=== PATIENT | female | born 1945 | race Caucasian/White ===

== ENCOUNTER 2020-03-09 08:59 | Outpatient (REF) | payer MEDICARE, SELFPAY ==
--- NOTE | 2020-03-09 | MM_ITS ---
EXAMINATION: BONE DENSITOMETRY CLINICAL INDICATION: Osteopenia. COMPARISON: Previous BD dated 03/29/2015 and baseline BD dated 03/08/2008. TECHNIQUE: Using a [employer] DXA System (software version: 13.1) manufactured by [employer], dual-energy x-ray absorptiometry was performed of the lumbar spine and left hip. The images are of good technical quality. Summary results are attached. FINDINGS: AP SPINE L1-L2 (excluding L3 and L4): The data of L1-L4 has been changed to exclude the L3 and L4 vertebral bodies, because degenerative changes at these levels may cause overestimation of lumbar spine density. Current: BMD 1.202 g/cm2, Z-score 1.9, T-score 0.3, normal, 2.6% increase from previous, 3.7% decrease from baseline (<5% change is not significant). Prior: BMD 1.172 g/cm2. Baseline: BMD 1.248 g/cm2. LEFT FEMUR, NECK: Current: BMD 0.915 g/cm2, Z-score 0.9, T-score -0.9, normal. Prior: BMD 0.913 g/cm2. Baseline: BMD 0.978 g/cm2. LEFT FEMUR, TOTAL: Current: BMD 1.070 g/cm2, Z-score 2.1, T-score 0.5, normal, 0.2% increase from previous, 7.6% decrease from baseline (<5% change is not significant). Prior: BMD 1.068 g/cm2. Baseline: BMD 1.158 g/cm2. IDENTIFIED RISK FACTORS: Height loss, menopause. HISTORY OF FRACTURE: None listed. MEDICATIONS: Vitamin D. MM/XR DEXA axial skeleton IMPRESSION: 1. DIAGNOSIS: Normal bone density based on the lowest T-score value of -0.9 in the femoral neck applying World Health Organization criteria. 2. 10-YEAR FRACTURE RISK PREDICTION, FRAX: Major osteoporotic fracture (clinical spine, forearm, hip or shoulder) 9.2%. Hip fracture 1.2%. 3. Treatment Recommendations: NOF guidelines recommend consideration for treatment in postmenopausal women and men age 50 and older presenting with the following: -A hip or vertebral (clinical or morphometric) fracture. -T-score less than or equal to -2.5 at the femoral neck or spine after appropriate evaluation to exclude secondary causes. -Low bone mass at the hip or spine and a 10-year fracture probability by FRAX of greater than or equal to 3% for hip fracture or greater than or equal to 20% for major osteoporotic fracture based on the [place] adapted WHO algorithm. 4. Other Recommendations: All treatment decisions require clinical judgment and consideration of individual patient factors, including patient preferences, comorbidities, previous drug use, risk factors not captured in the FRAX model (e.g. frailty, falls, vitamin D deficiency, increased bone turnover, interval significant decline in bone density) and possible under or overestimation of fracture risk by FRAX. FUTURE SCAN RECOMMENDATION: People with diagnosed cases of osteoporosis or at high risk for fracture should have regular bone mineral density tests. For patients eligible for Medicare, routine testing is allowed once every 2 years. The testing frequency can be increased to one year for patients who have rapidly progressing disease, those who are receiving or discontinuing medical therapy to restore bone mass, or have additional risk factors.
--- NOTE | 2020-03-09 | MM_ITS ---
EXAMINATION: MM SCREENING DIGITAL BREAST TOMOSYNTHESIS, BILATERAL CLINICAL INFORMATION: Screening. Asymptomatic. The lifetime risk of breast cancer based on the Tyrer-Cuzick Model is 5%. COMPARISON: Mammography: 03/04/2019, 02/26/2018, 02/04/2017 TECHNIQUE: Digital breast tomosynthesis is performed in both the craniocaudal and mediolateral oblique views along with computer-aided detection (CAD). Synthesized 2D images are generated from the tomosynthesis. Additional left CC view is provided. FINDINGS: There are scattered areas of fibroglandular density (ACR BI-RADS breast composition Category b). There are no significant masses, abnormal calcifications, or other abnormalities. The axilla and skin contours are unremarkable. MM/MM tomosynthesis screening BI IMPRESSION: No mammographic evidence of malignancy. ASSESSMENT: BI-RADS 1: Negative RECOMMENDATION: Routine annual mammography screening. This patient's information was entered into a reminder system with a target due date for their next mammogram.
== END 2020-03-09 09:00 | disposition home or self-care (01) ==
LOC: HO.MAMMO 08:59
PROVIDERS: Visit Provider Internal Medicine
DX: Z12.31 Encounter for screening mammogram for malignant neoplasm of breast (principal); Z13.820 Encounter for screening for osteoporosis; M85.89 Other specified disorders of bone density and structure, multiple sites
CPT/HCPCS: 77063; 77067; 77080; 77081

== ENCOUNTER 2020-05-29 13:42 | Outpatient (REF) | payer MEDICARE, SELFPAY ==
[2020-05-29 15:22] LABS: Anion Gap 14 (12-20); Blood Urea Nitrogen 17 mg/dL (9-16); Calcium 9.4 mg/dL (8.4-10.2); Carbon Dioxide 28 mmol/L (22-29); Chloride 103 mmol/L (96-108); Estimated Glomerular Filt Rate > 60; Glucose Random 76 mg/dL (60-115); Potassium 4.3 mmol/L (3.3-5.1); Sodium 141 mmol/L (135-145)
== END 2020-05-29 13:43 | disposition home or self-care (01) ==
LOC: HO.LAB 13:42
PROVIDERS: PCP Internal Medicine; Visit Provider Internal Medicine
DX: E87.6 Hypokalemia (principal)
CPT/HCPCS: 36415; 80048

== ENCOUNTER 2020-09-04 10:19 | Outpatient (REF) | payer MEDICARE, SELFPAY ==
[2020-09-04 10:40] LABS: Hemoglobin 13.1 g/dl (12.0-16.0); Red Cell Distribution Width 13.9 % (11.0-16.0)
[2020-09-04 10:42] LABS: Hematocrit 40.2 % (37-47); Mean Corpuscular HGB Conc 32.6 g/dl (31.0-35.0); Mean Corpuscular Volume 88.9 fL (80-98); Mean Platelet Volume 9.9 fL (9.4-12.3); Red Blood Count 4.52 X10*6/uL (4.20-5.50)
[2020-09-04 10:48] LABS: Platelet Count 135 X10*3/uL (160-400)
[2020-09-04 11:04] LABS: Alanine Aminotransferase 19 U/L (0-31); Albumin Level 4.3 g/dL (3.5-5.0); Alkaline Phosphatase 104 U/L (39-117); Anion Gap 13 (12-20); Aspartate Amino Transferase 26 U/L (5-31); Bilirubin Total 0.6 mg/dL (0.0-1.0); Blood Urea Nitrogen 15 mg/dL (9-16); Calcium 9.7 mg/dL (8.4-10.2); Carbon Dioxide 29 mmol/L (22-29); Chloride 106 mmol/L (96-108); Cholesterol 165 mg/dL; Estimated Glomerular Filt Rate > 60; Glucose Random 108 mg/dL (60-115); HDL Cholesterol 46 mg/dL; LDL Cholesterol Calculated 96 mg/dl; Sodium 144 mmol/L (135-145); Total Protein 7.2 g/dL (6.5-8.0); Triglycerides 117 mg/dL
[2020-09-04 11:25] LABS: TSH reflex Free T4 1.12 uIU/mL (0.32-4.0); Vitamin D 25-OH Total 48.6 ng/mL (>30)
[2020-09-04 13:11] LABS: Creatinine Urine 126.41 mg/dL; Microalbum/Creatinine Ratio Ur 52.2 ug/mg cr
== END 2020-09-04 10:20 | disposition home or self-care (01) ==
LOC: HO.LAB 10:19
PROVIDERS: PCP Internal Medicine; Visit Provider Internal Medicine
DX: Z00.00 Encounter for general adult medical examination without abnormal findings (principal); E78.2 Mixed hyperlipidemia; I10 Essential (primary) hypertension; R53.83 Other fatigue; E55.9 Vitamin D deficiency, unspecified
CPT/HCPCS: 36415; 80053; 80061; 82043; 82306; 84443; 85027

== ENCOUNTER 2021-01-21 12:43 | Outpatient (REF) | payer MEDICARE, SELFPAY ==
[2021-01-21 13:21] VITALS: BP 148/70; PULSE 82; RESP 16; TEMP 36.2; O2SAT 97; BMI 26.5
== END 2021-01-21 12:44 | disposition home or self-care (01) ==
LOC: HO.MS 12:43
PROVIDERS: PCP Internal Medicine; Visit Provider Ophthalmology
PROC: (CPT 66821; principal; 2021-01-21 14:30)
DX: H26.492 Other secondary cataract, left eye (principal); Z83.511 Family history of glaucoma; H35.033 Hypertensive retinopathy, bilateral; Z96.1 Presence of intraocular lens; I10 Essential (primary) hypertension; E78.00 Pure hypercholesterolemia, unspecified; Z79.899 Other long term (current) drug therapy
CPT/HCPCS: 66821

== ENCOUNTER 2021-05-17 09:05 | Outpatient (REF) | payer MEDICARE, SELFPAY ==
--- NOTE | ~2021-05-17 | MM_ITS ---
EXAMINATION: MM SCREENING DIGITAL BREAST TOMOSYNTHESIS, BILATERAL CLINICAL INFORMATION: Screening. Asymptomatic. The lifetime risk of breast cancer based on the Tyrer-Cuzick Model is 4%. COMPARISON: Mammography: 03/09/2020, 03/04/2019, 02/26/2018, 02/04/2017, 01/21/2016 TECHNIQUE: Digital breast tomosynthesis is performed in both the craniocaudal and mediolateral oblique views along with computer-aided detection (CAD). Synthesized 2D images are generated from the tomosynthesis. FINDINGS: There are scattered areas of fibroglandular density (ACR BI-RADS breast composition Category b). Parenchymal pattern is similar to prior studies. Small island fibroglandular tissue mid central 12:00 left breast is also noted on prior studies including 2016. There is no developing density. Scattered bilateral vascular and some scattered punctate round calcifications are again noted. The axilla and skin contours are unremarkable. MM/MM tomosynthesis screening BI IMPRESSION: No significant changes from prior exams. ASSESSMENT: BI-RADS 2: Benign RECOMMENDATION: Routine annual mammography screening. This patient's information was entered into a reminder system with a target due date for their next mammogram.
== END 2021-05-17 09:06 | disposition home or self-care (01) ==
LOC: HO.MAMMO 09:05
PROVIDERS: PCP Internal Medicine; Visit Provider Internal Medicine
DX: Z12.31 Encounter for screening mammogram for malignant neoplasm of breast (principal)
CPT/HCPCS: 77063; 77067

== ENCOUNTER 2022-06-17 09:19 | Outpatient (REF) | payer MEDICARE, SELFPAY ==
--- NOTE | ~2022-06-17 | MM_ITS ---
EXAMINATION: MM SCREENING DIGITAL BREAST TOMOSYNTHESIS, BILATERAL CLINICAL INFORMATION: Screening. Asymptomatic. The lifetime risk of breast cancer based on the Tyrer-Cuzick Model is 4%. COMPARISON: Mammography: 05/17/2021, 03/07/2020, 02/22/2019, 02/26/2018 TECHNIQUE: Digital breast tomosynthesis is performed in both the craniocaudal and mediolateral oblique views along with computer-aided detection (CAD). Synthesized 2D images are generated from the tomosynthesis. FINDINGS: There are scattered areas of fibroglandular density (ACR BI-RADS breast composition Category b). Parenchymal pattern is similar to prior studies. Small parenchymal asymmetry mid 12:00 left breast is stable from prior studies. No developing density. No architectural abnormality. There are no significant masses, abnormal calcifications, or other abnormalities. There are scattered bilateral benign punctate round and vascular calcifications again seen. The axilla are unremarkable. Skin contours are smooth. MM/MM tomosynthesis screening BI IMPRESSION: No mammographic evidence of malignancy. ASSESSMENT: BI-RADS 2: Benign RECOMMENDATION: Routine annual mammography screening. This patient's information was entered into a reminder system with a target due date for their next mammogram.
== END 2022-06-17 09:20 | disposition home or self-care (01) ==
LOC: HO.MAMMO 09:19
PROVIDERS: PCP Internal Medicine; Visit Provider Internal Medicine
DX: Z12.31 Encounter for screening mammogram for malignant neoplasm of breast (principal)
CPT/HCPCS: 77063; 77067

== ENCOUNTER 2023-09-28 15:12 | Outpatient (REF) | payer MEDICARE, SELFPAY ==
--- NOTE | ~2023-09-28 | MM_ITS ---
EXAMINATION: MM SCREENING DIGITAL BREAST TOMOSYNTHESIS, BILATERAL CLINICAL INFORMATION: Screening. Asymptomatic. COMPARISON: Mammography: This study is compared with prior exams dating back to 2020. TECHNIQUE: Digital breast tomosynthesis is performed in both the craniocaudal and mediolateral oblique views along with computer-aided detection (CAD). Synthesized 2D images are generated from the tomosynthesis. FINDINGS: There are scattered areas of fibroglandular density (ACR BI-RADS breast composition Category b). There is an asymmetry in the lateral aspect of the left breast at an anterior depth. Additional mammographic and targeted sonographic imaging is advised. In the right breast, there are no significant masses, abnormal calcifications, or other abnormalities. MM/MM tomosynthesis screening BI IMPRESSION: Left breast asymmetry warrants additional mammographic and targeted sonographic imaging. No mammographic signs of malignancy right breast. ASSESSMENT: BI-RADS BI-RADS 0 - Incomplete: Needs additional Imaging. RECOMMENDATION: 1. Additional views of the left breast. 2. Targeted ultrasound if warranted after review of the additional views. 3. Radiology department staff will contact the patient for additional imaging. Additional Imaging required This examination should not preclude the clinical evaluation of a suspicious palpable abnormality. This patient's information was entered into a reminder system with a target due date for their next mammogram.
== END 2023-09-28 15:13 | disposition home or self-care (01) ==
LOC: HO.MAMMO 15:12
PROVIDERS: PCP Internal Medicine; Visit Provider Internal Medicine
DX: Z12.31 Encounter for screening mammogram for malignant neoplasm of breast (principal)
CPT/HCPCS: 77063; 77067

== ENCOUNTER → 2023-09-28 15:30 | Outpatient (BNV) | payer MEDICARE, SELFPAY | PROVIDERS: PCP Internal Medicine; Visit Provider Radiology Diagnostic Radiology | DX: Z12.31 Encounter for screening mammogram for malignant neoplasm of breast (principal) | CPT/HCPCS: 77063; 77067 ==

== ENCOUNTER 2023-12-07 14:38 | Outpatient (REF) | payer MEDICARE, SELFPAY ==
--- NOTE | ~2023-12-07 | MM_ITS ---
EXAMINATION: MM DIAGNOSTIC DIGITAL BREAST TOMOSYNTHESIS, LEFT US BREAST LIMITED, LEFT MAMMOGRAPHY: CLINICAL INFORMATION: Diagnostic exam, evaluate one view asymmetry in the CC projection left breast approximately 3:00 axis seen on screening exam. COMPARISON: Mammography: 09/28/2023, and exams dating back to 2016. TECHNIQUE: Digital breast tomosynthesis is performed in the following views: Full field 3-D left mediolateral view, as well as 3-D spot compression left CC view. Computer-aided diagnosis was used for this study. FINDINGS: There are scattered areas of fibroglandular density (ACR BI-RADS breast composition Category b). Additional views demonstrate no definite persistent asymmetry in the upper outer left breast, middle one third. There are stable fibrocystic changes with numerous circumscribed nodules left breast, unchanged from numerous prior exams. There are stable benign punctate dystrophic and vascular calcifications. ULTRASOUND: CLINICAL INFORMATION: As above COMPARISON: None TECHNIQUE: Targeted sonographic evaluation left breast was performed using a high frequency linear transducer. Left breast was scanned from 1:00 to 5:00 to include the area of mammographic concern. Selected archived documentation. FINDINGS: LEFT BREAST: There is a mixture of fatty and fibrocystic glandular tissue. No suspicious mass is seen. There is no pathologic acoustic shadowing. There are a few scattered microcysts present. There is no suspicious cystic or architectural abnormality. MM/MM tomosynthesis added views L IMPRESSION: -There are no findings suspicious for malignancy left breast. -Stable fibrocystic changes, with overall parenchymal pattern unchanged over numerous years. -Recommend the patient resume routine annual screening mammography. OVERALL ASSESSMENT: Mammography: BI-RADS 2 - Benign Findings Ultrasound: BI-RADS 2 - Benign Findings RECOMMENDATION: 1 year F/U This patient's information was entered into a reminder system with a target due date for their next mammogram. Electronically signed by: Juve Gonzalez MD 12/07/2023 03:42 PM EDT
== END 2023-12-07 14:39 | disposition home or self-care (01) ==
LOC: HO.MAMMO 14:38
PROVIDERS: PCP Internal Medicine; Visit Provider Internal Medicine
DX: N64.89 Other specified disorders of breast (principal)
CPT/HCPCS: 76642; 77061; 77065